=== PATIENT | male | born 1975 | race Two or more races ===

== ENCOUNTER 2018-06-24 20:56 | Emergency (ER) | payer SELFPAY ==
[~2018-06-24] VITALS: Ht 175.3 cm; Wt 95.3 kg
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
[2018-06-24 21:41] LABS: BASOPHILS % (AUTO) 0.9 % (0.0-2.0); EOSINOPHILS % (AUTO) 1.4 % (0.0-6.0); HEMATOCRIT 42 % (39-51); HEMOGLOBIN 14.1 g/dL (13.5-17.5); LYMPHOCYTES # (AUTO) 1.5 /CMM (0.8-4.8); LYMPHOCYTES % (AUTO) 32.7 % (20.0-44.0); MEAN CORPUSCULAR HEMOGLOBIN 30 PG (26.0-33.0); MEAN CORPUSCULAR HGB CONC 33 g/dl (31.0-36.0); MEAN CORPUSCULAR VOLUME 89 fL (80-96); MONOCYTES # (AUTO) 0.3 /CMM (0.1-1.30); MONOCYTES % (AUTO) 6.6 % (2.0-12.0); NEUTROPHILS # (AUTO) 2.7 /CMM (1.8-8.9); NEUTROPHILS % (AUTO) 58.4 % (43.0-81.0); PLATELET COUNT (AUTO) 252 /CMM (150-450); RDW COEFFICIENT OF VARIATION 11.9 (11.5-15.0); RED BLOOD CELL COUNT(AUTO) 4.73 MIL/uL (4.5-6.0); WHITE BLOOD COUNT (AUTO) 4.6 K/uL (4.3-11.0)
[2018-06-24 21:55] LABS: ALBUMIN 3.9 g/dL (3.4-5.0); BILIRUBIN,DIRECT 0.1 mg/dL (0.0-0.2); BILIRUBIN,TOTAL 0.4 mg/dL (0.2-1.0); CALCIUM, SERUM 8.5 mg/dL (8.5-10.1); CREATININE 0.8 mg/dL (0.6-1.3); POTASSIUM 3.5 mmol/L (3.5-5.1); SALICYLATE 0.9 mg/dL (2.8-20.0); TOTAL PROTEIN, SERUM 7.6 g/dL (6.4-8.2)
--- NOTE | 2018-06-24 23:46 | NUR ---
Patient is resting comfortably in bed with eyes closed. Easily aroused. VSS
--- NOTE | 2018-06-25 01:43 | NUR ---
ASSUMED D/C CARE ONLY AT THIS TIME ON BEHALF OF PRIMARY NURSE. AAO X4 AMBULATORY WITH STEADY GAIT. DENIES ANY MEDICAL SX'S/SI/HI. Patient discharged to home in stable condition. Written and verbal after care instructions given. Patient verbalizes understanding of instruction. AT BEDSIDE.
[2018-06-25 01:47] VITALS: BP 127/82
== END 2018-06-25 01:48 | disposition home or self-care (01) ==
LOC: ER 20:59
DX: F10.129 Alcohol abuse with intoxication, unspecified (principal)
CPT/HCPCS: 36415; 70450; 72125; 80048; 80076; 80329; 82962; 85025; 99285; A4606; G0480 ×2; Z7610